=== PATIENT | male | born 1955 | race Caucasian/White ===

== ENCOUNTER 2016-08-30 20:57 | Emergency (ER) | payer MEDICARE ==
[~2016-08-30] VITALS: Ht 175.3 cm; Wt 75.2 kg
[2016-08-30 20:59] VITALS: BP 141/83
== END 2016-08-30 22:58 | disposition home or self-care (01) ==
LOC: ED 22:50
DX: R21 Rash and other nonspecific skin eruption (principal); M19.90 Unspecified osteoarthritis, unspecified site
CPT/HCPCS: 99283

== ENCOUNTER → 2016-09-19 | Outpatient (CLI) | payer MEDICARE | END | disposition home or self-care (01) | LOC: CFH 15:31 | PROVIDERS: ATTEND Nurse Practitioner Primary Care | DX: Z12.2 Encounter for screening for malignant neoplasm of respiratory organs (principal); M19.90 Unspecified osteoarthritis, unspecified site; F10.20 Alcohol dependence, uncomplicated; F17.210 Nicotine dependence, cigarettes, uncomplicated | CPT/HCPCS: G0297 ==

== ENCOUNTER → 2016-10-15 | Outpatient (CLI) | payer MEDICARE ==
[~2016-10-15] MED LIST: REGADENOSON 0.4 MG/5 ML SYRINGE ONE
== END | disposition home or self-care (01) ==
LOC: CFH 13:15
PROVIDERS: ATTEND Nurse Practitioner Primary Care
DX: Z01.818 Encounter for other preprocedural examination (principal); I08.1 Rheumatic disorders of both mitral and tricuspid valves; M19.90 Unspecified osteoarthritis, unspecified site; F10.20 Alcohol dependence, uncomplicated; Z72.0 Tobacco use
CPT/HCPCS: 78452; 93017; 93306; A9502; J2785

== ENCOUNTER → 2017-01-08 | Outpatient (CLI) | payer MEDICARE | END | disposition home or self-care (01) | LOC: CFH 09:31 | PROVIDERS: ATTEND Orthopaedic Surgery Orthopaedic Surgery of the Spine | DX: M47.896 Other spondylosis, lumbar region (principal); M48.061 Spinal stenosis, lumbar region without neurogenic claudication; M51.26 Other intervertebral disc displacement, lumbar region; M51.36 Other intervertebral disc degeneration, lumbar region | CPT/HCPCS: 72148 ==

== ENCOUNTER → 2017-01-30 | Outpatient (CLI) | payer MEDICARE ==
[~2017-01-30] MED LIST changes: +ASPI-496 PO; +GABA-827 PO; +IBUP-1223 PO; +MELA1TAB22 PO; -REGADENOSON 0.4 MG/5 ML SYRINGE ONE; +TRAM50TA2 PO; +TRAZ50TA18 PO
[2017-01-30 08:41] LABS: HEMATOCRIT 41.6 % (39.2-51.8); HEMOGLOBIN 13.9 g/dL (13.7-18.0); WHITE BLOOD COUNT 7.7 x10^3/uL (3.4-10)
[2017-01-30 08:52] LABS: BLOOD UREA NITROGEN 11 mg/dL (7-18)
== END | disposition home or self-care (01) ==
LOC: STAR 07:36
PROVIDERS: ATTEND Orthopaedic Surgery Orthopaedic Surgery of the Spine
DX: Z01.818 Encounter for other preprocedural examination (principal); M48.061 Spinal stenosis, lumbar region without neurogenic claudication
CPT/HCPCS: 36415; 71020; 80048; 81003; 85025; 93005

== ENCOUNTER 2017-02-13 09:34 | Day surgery (SDC) | payer MEDICARE ==
[2017-01-30 08:28] VITALS: BP 106/72
[~2017-02-13] VITALS: Ht 175.3 cm; Wt 72.7 kg
[2017-02-13 10:01] VITALS: BP 106/72
[2017-02-13] MEDS ORDERED: LACTATED RINGERS 1,000 ML IV SCH (10:21)
[2017-02-13] MEDS ORDERED: MIDAZOLAM 1 MG/ML, 2ML ONE (11:25)
[2017-02-13] MEDS ORDERED: TRANEXAMIC ACID 100 MG/ML, 10ML ONE ×2 (11:28)
[2017-02-13] MEDS ORDERED: EPINEPHRINE 1 MG/ML, 1ML ONE (11:28)
[2017-02-13] MEDS ORDERED: BUPIVACAINE/PF 0.5% ONE (11:28)
[2017-02-13] MEDS ORDERED: FENTANYL PF 250 MCG/5ML ONE (11:31)
[2017-02-13] MEDS ORDERED: SUCCINYLCHOLINE 20 MG/ML, 10ML ONE (11:42)
[2017-02-13] MEDS ORDERED: KETOROLAC 30 MG/1 ML ONE (11:42)
[2017-02-13] MEDS ORDERED: LIDOCAINE 4%, 4 ML SYR/CANN TP ONE (11:42)
[2017-02-13] MEDS ORDERED: BACITRACIN 50,000 UNIT ONE (11:47)
[2017-02-13] MEDS ORDERED: ALBUTEROL HFA 90 MCG/SPRAY ONE (11:57)
[2017-02-13] MEDS ORDERED: PROPOFOL 10 MG/ML, 20ML ONE ×2 (11:57)
[2017-02-13] MEDS ORDERED: DEXAMETHASONE 4 MG/ML, 1ML ONE (11:57)
[2017-02-13] MEDS ORDERED: ONDANSETRON 2MG/ML, 2ML ONE (11:57)
[2017-02-13] MEDS ORDERED: BUPIVACAINE LIPOSOME/PF INFIL ONE ×2 (12:00→12:35)
[2017-02-13] MEDS ORDERED: IBUPROFEN 800 MG TABLET PO SCH (12:00)
[2017-02-13] MEDS ORDERED: CEFAZOLIN 1,000 MG ONE (12:19)
[2017-02-13] MEDS ORDERED: ONDANSETRON 2MG/ML, 2ML IVPush PRN (12:30)
[2017-02-13] MEDS ORDERED: HYDROmorphone 1 MG/ML, 1ML IV PRN (12:30)
[2017-02-13] MEDS ORDERED: FENTANYL PF 100 MCG/2ML IV PRN (12:30)
[2017-02-13] MEDS ORDERED: PROMETHAZINE 25 MG/ML, 1ML IV PRN (12:30)
[2017-02-13] MEDS ORDERED: HYDROmorphone 1 MG/ML, 1ML ONE (12:30)
[2017-02-13] MEDS ORDERED: hydrALAzine 20 MG/ML, 1ML IV PRN (12:30)
[2017-02-13] MEDS ORDERED: ALBUTEROL/IPRATROPIUM 2.5MG/0.5MG, 3 ML NPPB PRN (12:30)
[2017-02-13] MEDS ORDERED: MIDAZOLAM 1 MG/ML, 2ML IV PRN (12:30)
[2017-02-13] MEDS ORDERED: METOPROLOL 1 MG/ML, 5ML IV PRN (12:30)
[2017-02-13] MEDS ORDERED: EPHEDRINE 50 MG/ML, 1ML IVPush PRN (12:30)
[2017-02-13] MEDS ORDERED: ACETAMINOPHEN 325 MG TABLET PO PRN (12:30)
[2017-02-13] MEDS ORDERED: DIAZEPAM 5 MG/ML, 2ML IVPush PRN (12:30)
[2017-02-13] MEDS ORDERED: LORazepam 2 MG/ML, 1ML IVPush PRN (12:30)
[2017-02-13] MEDS ORDERED: MEPERIDINE/PF 25MG/0.5ML IVPush PRN (12:30)
[2017-02-13] MEDS ORDERED: OXYcodone 5 MG/5 ML ORAL.SOL UDC PO PRN (12:30)
[2017-02-13] MEDS ORDERED: TRIAMCINOLONE ACETONIDE 40 MG/ML, 1ML IM ONE (12:43)
[2017-02-13] MEDS ORDERED: VANCOMYCIN 1,000 MG ONE (13:15)
[2017-02-13] MEDS ORDERED: OXYcodone 5 MG/5 ML ORAL.SOL UDC ONE (13:27)
[2017-02-13] MEDS ORDERED: ACETAMINOPHEN 650 MG/20.3 ML UDC ONE (13:27)
[2017-02-13] MEDS ORDERED: GABAPENTIN 400 MG CAPSULE PO SCH (16:00)
[2017-02-13] MEDS ORDERED: TRAZODONE 50MG TABLET PO SCH (21:00)
[2017-02-14] MEDS ORDERED: ASPIRIN 81 MG TABLET EC PO SCH (09:00)
== END 2017-02-13 16:45 | disposition home or self-care (01) ==
LOC: OUT 09:34
PROVIDERS: ATTEND Orthopaedic Surgery Orthopaedic Surgery of the Spine
DX: M48.061 Spinal stenosis, lumbar region without neurogenic claudication (principal); Z87.39 Personal history of other diseases of the musculoskeletal system and connective tissue
CPT/HCPCS: 63047; 72100; C9290; J0171; J0330; J0690; J1100; J1170; J1885; J2250; J2405; J2704; J3010; J3301; J3370; J3490; J7120

== ENCOUNTER → 2017-10-02 | Outpatient (CLI) | payer MEDICARE | END | disposition home or self-care (01) | LOC: CFH 09:26 | PROVIDERS: ATTEND Internal Medicine | DX: J44.9 Chronic obstructive pulmonary disease, unspecified (principal); Z72.0 Tobacco use | CPT/HCPCS: 71250 ==

== ENCOUNTER 2018-09-05 10:02 | Emergency (ER) | payer MEDICARE ==
[~2018-09-05] VITALS: Ht 172.7 cm; Wt 71.8 kg
[~2018-09-05 10:02] MED LIST changes: -TRAZ50TA18 PO; +TRAZ50TA66 PO
[2018-09-05 10:04] VITALS: BP 129/78
[2018-09-05] MEDS ORDERED: METHOCARBAMOL 750 MG TABLET ONE (10:29)
[2018-09-05] MEDS ORDERED: KETOROLAC 30 MG/1 ML ONE (10:29)
[2018-09-05] MEDS ORDERED: METHOCARBAMOL 750 MG TABLET PO ONE (10:30)
[2018-09-05] MEDS ORDERED: KETOROLAC 30 MG/1 ML IM ONE (10:30)
== END 2018-09-05 11:18 | disposition home or self-care (01) ==
LOC: ED 11:12
DX: M54.12 Radiculopathy, cervical region (principal); M77.11 Lateral epicondylitis, right elbow; F17.200 Nicotine dependence, unspecified, uncomplicated
CPT/HCPCS: 72050; 73080; 96372; 99283; J1885; J7512

== ENCOUNTER 2018-10-13 11:18 | Outpatient (CLI) | payer MEDICARE | END 2018-10-13 23:59 | disposition home or self-care (01) | LOC: CFH 11:18 | PROVIDERS: ATTEND Nurse Practitioner Primary Care | DX: M47.812 Spondylosis without myelopathy or radiculopathy, cervical region (principal); M47.816 Spondylosis without myelopathy or radiculopathy, lumbar region; M41.86 Other forms of scoliosis, lumbar region | CPT/HCPCS: 72040; 72100 ==

== ENCOUNTER → 2020-01-27 | Outpatient (CLI) | payer MEDICARE | END | disposition home or self-care (01) | LOC: CFH 12:27 | PROVIDERS: ATTEND Nurse Practitioner Primary Care | DX: M51.36 Other intervertebral disc degeneration, lumbar region (principal); M48.07 Spinal stenosis, lumbosacral region; M47.817 Spondylosis without myelopathy or radiculopathy, lumbosacral region; J44.9 Chronic obstructive pulmonary disease, unspecified; Z72.0 Tobacco use | CPT/HCPCS: 71250; 72148 ==